=== PATIENT | female | born 1995 | race Caucasian/White ===

== ENCOUNTER → 2017-10-02 | Outpatient (CLI) | payer BC ==
[2017-10-02 17:58] LABS: BASO # 0.1 (0.02-0.10); EOS # 0.1 (0.04-0.40); EOS % 0.6 % (1.0-5.0); HEMATOCRIT 43.1 % (37.0-47.0); HEMOGLOBIN 14.4 g/dL (12.5-16.0); LYMPH# 2.6 (1.50-4.00); MEAN CELL VOLUME 83 fl (78-100); MEAN CORPUSCULAR HEMOGLOBIN 28 pg (27-31); MEAN CORPUSCULAR HGB CONC 33 g/dL (33-37); MEAN PLATELET VOLUME 9.3 fl (7.4-10.4); MONO # 0.8 (0.20-0.80); NEU # 5.3 (1.40-6.50); PLATELET COUNT 383 K/mm3 (130-400); RED BLOOD COUNT 5.21 M/mm3 (4.10-5.30); RED CELL DISTRIBUTION WIDTH 12.9 % (11.5-14.5); WHITE BLOOD COUNT 8.8 K/mm3 (4.8-10.8)
[2017-10-02 18:07] LABS: ALBUMIN 4.1 g/dL (3.5-5.0); BUN/CREATININE RATIO 21.3 (6.0-26.0); CALCIUM 9.3 mg/dL (8.4-10.2); POTASSIUM 3.6 mmol/L (3.6-5.0); TOTAL BILIRUBIN 0.5 mg/dL (0.2-1.3); TOTAL PROTEIN 7.2 g/dL (6.3-8.2)
== END ==
LOC: LAB 17:34
PROVIDERS: Nurse Practitioner Family
DX: R63.4 Abnormal weight loss (principal); G47.09 Other insomnia; R63.2 Polyphagia

== ENCOUNTER 2018-02-11 16:33 | Emergency (ER) | payer BC, OTHER ==
[~2018-02-11] VITALS: Ht 162.6 cm; Wt 61.7 kg
[2018-02-11] MEDS ORDERED: NORCO 325 MG-51 TA1 PO (17:46)
[2018-02-11 18:09] VITALS: BP 110/73
== END 2018-02-11 18:08 | disposition home or self-care (01) ==
LOC: ED 16:33
DX: S06.0X0A Concussion without loss of consciousness, initial encounter (principal); S00.83XA Contusion of other part of head, initial encounter; W22.8XXA Striking against or struck by other objects, initial encounter; Y92.008 Other place in unspecified non-institutional (private) residence as the place of occurrence of the external cause; Z87.820 Personal history of traumatic brain injury

== ENCOUNTER → 2018-02-13 | Outpatient (CLI) | payer BC, OTHER ==
[2018-02-11 18:09] VITALS: BP 110/73
[~2018-02-13] MED LIST: NORCO 325 MG-51 TA1 PO
== END ==
LOC: RAD 09:53
DX: S00.83XA Contusion of other part of head, initial encounter (principal); R42 Dizziness and giddiness